=== PATIENT | male | born 1940 | race Caucasian/White ===

== ENCOUNTER 2018-10-14 10:42 | Outpatient (CLI) | payer OTHER ==
--- NOTE | 2018-10-20 13:11 | OP Clinic Progress Note ---
DATE OF VISIT: 10/14/2018 SUBJECTIVE: Rodolfo Avery is a 78-year-old male presenting with his in clinic today for an ingrown toenail to the right great toe medial border. He was seen earlier this week at clinic and we decided and discussed the plan for a partial nail avulsion with chemical matrixectomy. The patient would like to have this done. The patient was encouraged earlier this week that he should not be chewing tobacco while he is healing this. I believe that despite his chewing tobacco, his blood flow seems very good and he should be able to heal this just fine. The patient is having pain there regularly and would like to have it fixed permanently. The patient does not admit to any fevers, chills, nausea, vomiting, shortness of breath or chest pain at this time. He had a partial nail avulsion procedure performed in [place] about a year ago, but that came back which is why we want to go ahead and make this more aggressive to treat today. He denies being diabetic. OBJECTIVE: Vitals: Temperature 98.3, heart rate 91, respiration rate 16, blood pressure 140/83. O2 sat 94% on room air. Vascular: 2+ DP and PT pulses, right foot. Capillary refill time less than 3 seconds to the toes right foot. No edema right foot. Dermatologic: There is no erythema or irritation or ecchymosis noted and no open lesions noted right foot. There is no obvious nail incurvation, but the patient definitely is sore in that area. Musculoskeletal: Pain on palpation is noted along the entire medial border of the right great toenail, especially proximally. Neurologic: Light touch sensation is intact to the toes right foot. ASSESSMENT AND PLAN: 1. Onychocryptosis. PROCEDURE #1: Right hallux medial nail border, partial nail avulsion with chemical matrixectomy was performed today. Risk and benefits that include, but are not limited to bleeding, infection and nonhealing were discussed with the patient especially in light of his chewing tobacco history and currently. He was encouraged again to not be chewing tobacco at this time with his present as well to hear it. The patient agreed and understood the risks and benefits and decided to go further with the procedure as mentioned above at this time and consent was signed and placed in the chart. A 4 mL of 1:1 mix of 2% lidocaine plain and 0.5% Marcaine plain were injected into the patient's right great toe. At this time the toe was exsanguinated and a toe tourniquet was applied. The toe was then cleansed with a Betadine prep and anesthesia after having been checked and obtained was noted. At this time a partial nail avulsion of the medial border of the right great toenail was performed with a hemostat and a nail splitter. This nail edge was removed and checked to make sure the entirety was removed on that border. It was, and the site was rinsed with copious amount of normal saline. At this time application of phenol in increments of 45 seconds, 30 seconds and 30 seconds were performed in the medial border where the nail edge was removed. At this time the tourniquet was removed and a prompt hyperemic response was noted to the right great toe distal tip. At this time 70% isopropyl alcohol was then utilized to clean out and rinse out the acid. It should be noted that triple antibiotic ointment was placed around the edge of the toe procedure area to protect it from the phenol prior to use of the phenol. At this time after having rinsed everything out and a final copious amount of normal saline being used to rinse out the area, it was dried and bandages were applied consisting of triple antibiotic ointment, 4x4 gauze, 2-inch Nicholas and 1-inch Coban beginning on the toe and ending onto the distal forefoot to help it hold it on the toe. The patient tolerated the procedure well. Instructions were given for post procedure care verbally and by written instructions. The patient will return to the clinic in one week for followup and then two weeks after that for final followup as long as things had healed at that time. The patient knows to contact us if any concerns or go to an urgent care for any issues over the weekend. The patient has no further questions and we will see him in one week. Anderson Luna D.P.M.(Dictated/not signed) /[employer] [id number] /mab MTDD
== END 2018-10-14 11:15 ==
LOC: POD 10:42
PROVIDERS: ATTEND Podiatrist Foot & Ankle Surgery
DX: L60.0 Ingrowing nail (principal)
CPT/HCPCS: 11730; 11750; 99213; G0463; A4554